=== PATIENT | male | born 1980 | race Hispanic/Latino ===

== ENCOUNTER 2023-09-15 16:04 | Emergency (ER) | payer BC ==
[~2023-09-15] VITALS: Ht 177.8 cm; Wt 88.5 kg
[2023-09-15] MEDS ORDERED: ACETAMINOPHEN 500 MG TABLET PO ONE (17:00)
[2023-09-15] MEDS ORDERED: CEFTRIAXONE 1G VIAL IVPB ONE (17:00)
[2023-09-15 17:04] LABS: BASOPHILS # (AUTO) 0.02 K/uL (0.00-0.20); BASOPHILS % (AUTO) 0.3 % (0.0-5.0); IMMATURE GRANULOCYTE ABSOLUTE 0.03 K/uL (0-1); LYMPHOCYTES # (AUTO) 0.9 K/uL (1.0-4.8); LYMPHOCYTES % (AUTO) 11.6 % (21.0-51.0); MEAN CORPUSCULAR HEMOGLOBIN 30.5 pg (27.0-33.0); MEAN CORPUSCULAR HGB CONC 34.4 g/dL (32.0-36.0); MEAN CORPUSCULAR VOLUME 88.7 fL (79-99); MONOCYTES # (AUTO) 0.4 K/uL (0.1-1.0); MONOCYTES % (AUTO) 5.3 % (3.0-13.0); NEUTROPHILS # (AUTO) 6.5 K/uL (1.8-7.7); NEUTROPHILS % (AUTO) 82.4 % (40.0-77.0); PLATELET COUNT (AUTO) 264 K/uL (130-400); RED BLOOD CELL COUNT(AUTO) 5.64 MIL/uL (4.50-6.20); RED CELL DISTRIBUTION WIDTH 12.4 % (11.0-15.5); WHITE BLOOD COUNT (AUTO) 7.9 K/uL (4.8-10.8)
[2023-09-15 17:21] LABS: CREATININE 0.9 mg/dL (0.5-1.3); POTASSIUM 4.1 mmol/L (3.5-5.1)
[2023-09-15] MEDS: 0.9%NACL 1000ML 1,000 ML IV ONE ×2 (17:21→18:34)
[2023-09-15] MEDS: SOLU-MEDROL 125MG VIAL IVP ONE (17:22)
[2023-09-15] MEDS: MECLIZINE HCL 25 MG TABLET PO ONE (17:22)
[2023-09-15 17:26] LABS: ALBUMIN 4.2 g/dL (3.5-5.0); BILIRUBIN,TOTAL 0.6 mg/dL (0.2-1.0); TOTAL PROTEIN, SERUM 8.2 g/dL (6.0-8.3)
[2023-09-15] MEDS: CEFTRIAXONE 1G VIAL IVPB ONE (17:32)
[2023-09-15 19:25] LABS: APPEARANCE,URINE CLEAR (CLEAR); BILIRUBIN,URINE NEGATIVE (NEGATIVE); COLOR,URINE LIGHT-YELLOW (YELLOW); GLUCOSE, URINE (UA) NEGATIVE (NEGATIVE); KETONES,URINE NEGATIVE (NEGATIVE); LEUKOCYTE ESTERASE ,URINE NEGATIVE Leu/uL (NEGATIVE); NITRATE,URINE NEGATIVE (NEGATIVE); OCCULT BLOOD,URINE NEGATIVE (NEGATIVE); PH,URINE 7.5 (5.0-8.0); PROTEIN,URINE NEGATIVE (NEGATIVE); UROBILINOGEN,URINE 0.2 mg/dL (0.2-1.0)
[2023-09-15 19:35] LABS: ADD UA MICROSCOPIC NO
[2023-09-15 19:47] VITALS: BP 148/87; PULSE 87; RESP 16; O2SAT 99
== END 2023-09-15 20:08 | disposition home or self-care (01) ==
LOC: EDH 16:04
DX: H60.502 Unspecified acute noninfective otitis externa, left ear (principal); H81.12 Benign paroxysmal vertigo, left ear; K02.9 Dental caries, unspecified; E87.20 Acidosis, unspecified; H83.02 Labyrinthitis, left ear; I10 Essential (primary) hypertension
CPT/HCPCS: 99284; 96365; 96375; 80053; 85025; 87040 ×2; 83605; 81003; 36415; J7030 ×2; J2919; J0696